=== PATIENT | male | born 2005 | race Two or more races ===

== ENCOUNTER 2025-06-21 21:48 | Emergency (ER) | payer OTHER ==
[~2025-06-21] VITALS: Ht 182.9 cm; Wt 104.3 kg
[2025-06-21 23:08] VITALS: BP 155/87
[2025-06-22] MEDS ORDERED: IBUPROFEN 800 MG TABLET ONE (00:11)
[2025-06-22] MEDS ORDERED: ACETAMINOPHEN 500 MG TABLET ONE (00:12)
[2025-06-22] MEDS: ACETAMINOPHEN 500 MG TABLET PO ONE (00:13)
[2025-06-22] MEDS: IBUPROFEN 800 MG TABLET PO ONE (00:13)
[2025-06-22 00:56] VITALS: BP 136/82; TEMP 97.6; O2SAT 100
== END 2025-06-22 00:58 | disposition home or self-care (01) ==
LOC: ER 21:56
DX: S40.012A Contusion of left shoulder, initial encounter (principal); W01.0XXA Fall on same level from slipping, tripping and stumbling without subsequent striking against object, initial encounter; Y93.01 Activity, walking, marching and hiking; Y92.89 Other specified places as the place of occurrence of the external cause; Y99.9 Unspecified external cause status
CPT/HCPCS: 73020; A4606; A4663; A9150